=== PATIENT | female | born 1950 | race African-American/Black ===

== ENCOUNTER 2018-11-27 18:41 | Inpatient (IN) | payer MEDICARE, OTHER ==
[~2018-11-27] VITALS: Ht 167.6 cm; Wt 75.7 kg
[2018-11-27] MEDS ORDERED: IPRATROPIUM BROMIDE (0.02%) 0.5MG/2.5ML NEB HHN STA (18:50)
[2018-11-27] MEDS ORDERED: METHYLPREDNISOLONE SOD SUCC 125 MG/2 ML VIAL IV STA (18:50)
[2018-11-27] MEDS ORDERED: ALBUTEROL (0.083%) 2.5MG/3ML NEB HHN STA (18:50)
[2018-11-27 19:51] LABS: BASOPHILS % 0.6 % (0.0-2.0); EOSINOPHILS % 2.5 % (0.0-5.0); HEMATOCRIT. 50.6 % (36.0-48.0); HEMOGLOBIN. 16.7 g/dL (12.0-16.0); LYMPHOCYTES % 51.3 % (20.0-50.0); MEAN CORPUSCULAR HEMOGLOBIN 33.1 pg (28.0-32.0); MEAN CORPUSCULAR VOLUME 100.4 fL (81.0-99.0); MEAN PLATELET VOLUME 7.4 fl (7.4-10.4); MONOCYTES % 13.6 % (2.0-8.0); PLATELET 181 x1000/uL (130-400); RED BLOOD CELL COUNT 5.04 mill/uL (4.2-5.4); RED CELL DISTRIBUTION WIDTH 13.3 % (11.6-14.6)
[2018-11-27 19:56] LABS: CHLORIDE 103 mEq/L (98-107)
[2018-11-27] MEDS ORDERED: SODIUM CHLORIDE 0.9% 500 ML IV ONE (21:45)
[2018-11-27] MEDS ORDERED: HYDROCODONE/ACETAMINOPHEN 5/325MG TABLET PO ONE (22:30)
[2018-11-28 00:30] VITALS: BP 124/72
[2018-11-28] MEDS ORDERED: ATEN-42 PO (01:29)
[2018-11-28] MEDS ORDERED: TIOT18CA3 IH (01:29)
[2018-11-28] MEDS ORDERED: PRO1 PO (01:29)
[2018-11-28] MEDS ORDERED: ALBU05 IH (01:29)
[2018-11-28] MEDS ORDERED: ISOS10TA2 PO (01:29)
[2018-11-28] MEDS ORDERED: ONDANSETRON HCL 4MG/2ML INJ IV PRN (01:45)
[2018-11-28] MEDS ORDERED: DEXTROSE 50% WATER 50ML SYRINGE IV PRN (01:45)
[2018-11-28] MEDS ORDERED: ACETAMINOPHEN 325MG TABLET PO PRN (01:45)
[2018-11-28] MEDS: LEVOFLOXACIN 500MG TABLET PO SCH ×2 (02:27→20:50)
[2018-11-28 04:00] VITALS: BP 116/70
[2018-11-28] MEDS: IPRATROPIUM/ALBUTEROL 0.5-3(2.5)MG/3ML NEB HHN SCH ×5 (04:48→20:19)
[2018-11-28] MEDS: METHYLPREDNISOLONE SOD SUCC 40 MG/ML VIAL IV SCH ×3 (05:40→20:50)
[2018-11-28] MEDS ORDERED: NON FORMULARY PATIENT HOME MED XX SCH (06:45)
[2018-11-28] MEDS ORDERED: GUAIFENESIN/CODEINE 100-10MG/5ML UDC PO PRN (06:45)
[2018-11-28 08:00] VITALS: BP 130/73
[2018-11-28] MEDS: INSULIN LISPRO 100 UNITS/ML SUBCUT SCH ×4 (08:29→20:45)
[2018-11-28] MEDS: ISOSORBIDE DINITRATE 10MG TABLET PO SCH ×3 (08:29→17:40)
[2018-11-28] MEDS: PANTOPRAZOLE 40MG DR TABLET PO SCH (08:29)
[2018-11-28] MEDS: BLOOD SUGAR DIAGNOSTIC STRIP TEST SCH ×4 (08:30→20:51)
[2018-11-28] MEDS: ENOXAPARIN 40MG/0.4ML SYR SUBCUT SCH (08:30)
[2018-11-28] MEDS ORDERED: MEDICATION NOT ON FORMULARY EA (Isosorbide Dinitrate 10 MG) PO SCH (09:00)
[2018-11-28 11:11] LABS: HEMATOCRIT 49.7 % (36.0-48.0); HEMOGLOBIN 16.4 g/dL (12.0-16.0); MEAN CORPUSCULAR HEMOGLOBIN 33.1 pg (28.0-32.0); MEAN CORPUSCULAR VOLUME 100.6 fL (81.0-99.0); PLATELET 194 x1000/uL (130-400); RED BLOOD CELL COUNT 4.94 mill/uL (4.2-5.4); RED CELL DISTRIBUTION WIDTH 12.9 % (11.6-14.6)
[2018-11-28 11:19] LABS: PROTHROMBIN TIME 10.3 sec (9.1-11.1)
[2018-11-28 11:21] LABS: CHLORIDE 100 mEq/L (98-107)
[2018-11-28 12:00] VITALS: BP 123/69
[2018-11-28 12:56] LABS: BG BASE EXCESS 3.6 mmol/L (-2.0-2.0); BG CARBOXYHEMOGLOBIN 0.9 % (0.5-1.5); BG DEOXYHEMOGLOBIN 14.3 % (0.0-5.0); BG FRACTION INSPIRED OXYGEN 21; BG HCO3 ACT 30.1 mmol/L (22.0-26.0); BG METHEMOGLOBIN 0.2 % (0.0-1.5); BG OXYGEN SATURATION 85.5 % (92.0-98.5); BG OXYHEMOGLOBIN 84.6 % (94.0-97.0); BG PO2 46.5 mmHg (75.0-100.0); BG SAMPLE SITE RIGHT RADIAL; BG TOTAL HEMOGLOBIN 16.1 g/dL (12.0-18.0); BG VENT MODE ROOM AIR
[2018-11-28] MEDS ORDERED: LORAZEPAM 0.5MG TABLET PO PRN (14:30)
[2018-11-28] MEDS: SODIUM CHLORIDE 0.45% 1,000 ML IV SCH ×2 (14:30→20:51)
[2018-11-28] MEDS: GUAIFENESIN/CODEINE 100-10MG/5ML UDC PO PRN ×2 (14:57→20:50)
[2018-11-28] MEDS: FOLIC ACID 1MG TABLET PO SCH (14:57)
[2018-11-28] MEDS: MULTIVITAMINS,THER W-MINERALS TABLET PO SCH (14:58)
[2018-11-28] MEDS: NICOTINE 21MG PATCH TD SCH (14:58)
[2018-11-28] MEDS: THIAMINE HCL 100MG TABLET PO SCH (14:58)
[2018-11-28] MEDS: DOCUSATE SODIUM 100MG CAPSULE PO PRN (14:58)
[2018-11-28 16:00] VITALS: BP 125/78
[2018-11-28 20:00] VITALS: BP 160/73
[2018-11-28] MEDS: DILTIAZEM HCL 60MG TABLET PO SCH (20:51)
[2018-11-29] VITALS: BP 140/87
[2018-11-29] MEDS: IPRATROPIUM/ALBUTEROL 0.5-3(2.5)MG/3ML NEB HHN SCH ×5 (01:06→20:53)
[2018-11-29 04:00] VITALS: BP 132/79
[2018-11-29] MEDS: METHYLPREDNISOLONE SOD SUCC 40 MG/ML VIAL IV SCH ×3 (05:57→21:11)
[2018-11-29] MEDS: DILTIAZEM HCL 60MG TABLET PO SCH ×3 (05:57→21:10)
[2018-11-29] MEDS: BLOOD SUGAR DIAGNOSTIC STRIP TEST SCH ×4 (06:10→21:11)
[2018-11-29 07:11] LABS: HEMATOCRIT 47.5 % (36.0-48.0); HEMOGLOBIN 15.4 g/dL (12.0-16.0); MEAN CORPUSCULAR HEMOGLOBIN 32.7 pg (28.0-32.0); MEAN CORPUSCULAR VOLUME 100.6 fL (81.0-99.0); PLATELET 182 x1000/uL (130-400); RED BLOOD CELL COUNT 4.72 mill/uL (4.2-5.4); RED CELL DISTRIBUTION WIDTH 12.9 % (11.6-14.6)
[2018-11-29 07:16] LABS: CHLORIDE 101 mEq/L (98-107)
[2018-11-29 08:00] VITALS: BP 132/72
[2018-11-29 08:55] LABS: CLARITY URINE CLEAR (CLEAR); COLOR URINE YELLOW (YELLOW); KETONES URINE NEGATIVE (NEGATIVE); LEUKOCYTE ESTERASE URINE NEGATIVE (NEGATIVE); NITRITE URINE NEGATIVE (NEGATIVE); OCCULT BLOOD URINE NEGATIVE (NEGATIVE); PROTEIN URINE NEGATIVE (NEGATIVE); SPECIFIC GRAVITY URINE 1.009 (1.005-1.030); UROBILINOGEN URINE 0.2 E.U./dL (0.2-1.0)
[2018-11-29] MEDS: FOLIC ACID 1MG TABLET PO SCH (09:19)
[2018-11-29] MEDS: THIAMINE HCL 100MG TABLET PO SCH (09:19)
[2018-11-29] MEDS: ISOSORBIDE DINITRATE 10MG TABLET PO SCH ×3 (09:19→17:41)
[2018-11-29] MEDS: PANTOPRAZOLE 40MG DR TABLET PO SCH (09:19)
[2018-11-29] MEDS: MULTIVITAMINS,THER W-MINERALS TABLET PO SCH (09:19)
[2018-11-29] MEDS: ENOXAPARIN 40MG/0.4ML SYR SUBCUT SCH (09:20)
[2018-11-29] MEDS: NICOTINE 21MG PATCH TD SCH (09:20)
[2018-11-29 09:21] LABS: *BARBITURATES SCREEN URINE NEGATIVE (NEGATIVE)
[2018-11-29 09:22] LABS: *AMPHETAMINES SCREEN URINE NEGATIVE (NEGATIVE); *BENZODIAZEPINES SCREEN URINE NEGATIVE (NEGATIVE); *COCAINE SCREEN URINE NEGATIVE (NEGATIVE)
[2018-11-29 09:23] LABS: CANNABINOID URINE SCREEN NEGATIVE (NEGATIVE); OPIATES URINE SCREEN PRESUMTIVE POSITIVE (NEGATIVE); PHENCYCLIDINE URINE SCREEN NEGATIVE (NEGATIVE)
[2018-11-29 09:25] LABS: METHADONE URINE SCREEN NEGATIVE (NEGATIVE)
[2018-11-29] MEDS: INSULIN LISPRO 100 UNITS/ML SUBCUT SCH ×4 (09:25→21:00)
[2018-11-29] MEDS: DOCUSATE SODIUM 100MG CAPSULE PO PRN ×2 (11:26→21:10)
[2018-11-29 12:00] VITALS: BP 125/68
[2018-11-29 16:00] VITALS: BP 142/75
[2018-11-29] MEDS: SODIUM CHLORIDE 0.45% 1,000 ML IV SCH (17:24)
[2018-11-29 20:00] VITALS: BP 128/76
[2018-11-29] MEDS ORDERED: HYDROCODONE/ACETAMINOPHEN 5/325MG TABLET PO PRN (20:15)
[2018-11-29] MEDS: LEVOFLOXACIN 500MG TABLET PO SCH (21:10)
[2018-11-29] MEDS: GUAIFENESIN/CODEINE 100-10MG/5ML UDC PO PRN (21:11)
[2018-11-30] VITALS: BP 118/76
[2018-11-30] MEDS: IPRATROPIUM/ALBUTEROL 0.5-3(2.5)MG/3ML NEB HHN SCH ×5 (00:19→15:56)
[2018-11-30 04:00] VITALS: BP 132/77
[2018-11-30] MEDS: METHYLPREDNISOLONE SOD SUCC 40 MG/ML VIAL IV SCH (05:26)
[2018-11-30] MEDS: BLOOD SUGAR DIAGNOSTIC STRIP TEST SCH ×3 (05:26→17:47)
[2018-11-30] MEDS: DILTIAZEM HCL 60MG TABLET PO SCH ×2 (05:26→14:10)
[2018-11-30 08:00] VITALS: BP 132/80
[2018-11-30] MEDS: NICOTINE 21MG PATCH TD SCH (09:37)
[2018-11-30] MEDS: THIAMINE HCL 100MG TABLET PO SCH (09:38)
[2018-11-30] MEDS: ENOXAPARIN 40MG/0.4ML SYR SUBCUT SCH (09:38)
[2018-11-30] MEDS: FOLIC ACID 1MG TABLET PO SCH (09:38)
[2018-11-30] MEDS: PANTOPRAZOLE 40MG DR TABLET PO SCH (09:38)
[2018-11-30] MEDS: ISOSORBIDE DINITRATE 10MG TABLET PO SCH ×3 (09:38→18:04)
[2018-11-30] MEDS: MULTIVITAMINS,THER W-MINERALS TABLET PO SCH (09:38)
[2018-11-30] MEDS: INSULIN LISPRO 100 UNITS/ML SUBCUT SCH ×3 (09:39→17:48)
[2018-11-30 11:35] LABS: HEMATOCRIT 49.1 % (36.0-48.0); HEMOGLOBIN 16.2 g/dL (12.0-16.0); MEAN CORPUSCULAR HEMOGLOBIN 33.4 pg (28.0-32.0); MEAN CORPUSCULAR VOLUME 101.2 fL (81.0-99.0); PLATELET 175 x1000/uL (130-400); RED BLOOD CELL COUNT 4.85 mill/uL (4.2-5.4); RED CELL DISTRIBUTION WIDTH 12.9 % (11.6-14.6)
[2018-11-30 11:47] LABS: CHLORIDE 100 mEq/L (98-107)
[2018-11-30 12:00] VITALS: BP 122/65
[2018-11-30 16:00] VITALS: BP 129/69
[2018-11-30] MEDS ORDERED: METHYLPREDNISOLONE SOD SUCC 40 MG/ML VIAL IV SCH (18:00)
[2018-11-30 18:24] VITALS: BP 129/69
[2018-12-01] MEDS ORDERED: FAMOTIDINE 20MG TABLET PO SCH (09:00)
== END 2018-11-30 19:12 | disposition home or self-care (01) | DRG 190 ==
LOC: ER 19:32 → 7WST 21:43 → EDBEDREQTM 21:48 → EDBEDREQ 21:48 → ENRESERV 23:04
PROVIDERS: ADMIT Internal Medicine; ATTEND Internal Medicine
DX: J44.1 Chronic obstructive pulmonary disease with (acute) exacerbation (principal); J18.9 Pneumonia, unspecified organism; E87.2 Acidosis; D64.9 Anemia, unspecified; J06.9 Acute upper respiratory infection, unspecified; D75.1 Secondary polycythemia; E86.0 Dehydration; R09.02 Hypoxemia; D72.819 Decreased white blood cell count, unspecified; E11.9 Type 2 diabetes mellitus without complications; E78.5 Hyperlipidemia, unspecified; F17.210 Nicotine dependence, cigarettes, uncomplicated; I10 Essential (primary) hypertension; Z79.51 Long term (current) use of inhaled steroids; Z90.710 Acquired absence of both cervix and uterus
CPT/HCPCS: 36415; 36600; 71045; 74176; 80048; 80305; 82375; 82805; 82962; 83036; 83880; 84484; 85027; 85379; 93005; 93306; 93970; 94640; 94644; 99285; J1650; J1815; J2405; J2920; J2930; J7040; J7611; J7620

== ENCOUNTER 2021-07-30 16:42 | Emergency (ER) | payer MEDICARE, OTHER ==
[~2021-07-30] VITALS: Ht 162.6 cm; Wt 78.0 kg
[~2021-07-30 16:42] MED LIST: ALBU05 IH; ATEN-42 PO; ISOS10TA2 PO; PRO1 PO; TIOT18CA3 IH
[2021-07-30] MEDS ORDERED: BACITRACIN ZINC OINT UDPKT TOP ONE (17:00)
[2021-07-30] MEDS ORDERED: LIDOCAINE HCL/EPINEPHRINE 1%-EPI 1:100,000 20 ML VIAL INFIL ONE (17:00)
[2021-07-30] MEDS ORDERED: TETANUS, DIPHTHERIA, PERTUSSIS VAC/PF 0.5ML (>10YR OLD) IM ONE (17:00)
[2021-07-30] MEDS ORDERED: IBUP-2028 MT (20:50)
[2021-07-30 21:00] VITALS: BP 110/64
== END 2021-07-30 21:00 | disposition home or self-care (01) ==
LOC: ER 16:42
DX: S01.112A Laceration without foreign body of left eyelid and periocular area, initial encounter (principal); M25.532 Pain in left wrist; W18.39XA Other fall on same level, initial encounter; Y93.89 Activity, other specified; Y92.89 Other specified places as the place of occurrence of the external cause; Y99.8 Other external cause status; J44.9 Chronic obstructive pulmonary disease, unspecified; I10 Essential (primary) hypertension; Z90.49 Acquired absence of other specified parts of digestive tract; Z90.710 Acquired absence of both cervix and uterus; Z79.899 Other long term (current) drug therapy
CPT/HCPCS: 12013; 70450; 73110; 90471; 90715; 99284; J3490